=== PATIENT | female | born 1970 | race Caucasian/White ===

== ENCOUNTER 2019-03-06 22:07 | Emergency (ER) | payer OTHER ==
--- NOTE | 2019-03-06 22:34 | EDM.PDOC ---
ED HPI GENERAL MEDICAL PROBLEM - General Chief Complaint: Lower Extremity Injury/Pain Stated Complaint: BROKE TOE Time Seen by Provider: 03/06/19 22:25 Source of Information: Reports: Patient History Limitations: Reports: No Limitations - History of Present Illness INITIAL COMMENTS - FREE TEXT/NARRATIVE: Today, she hit door with her right foot, affecting her 4th and 5th toe; red, tender; hurts to bear weight No previous injury. Onset: Today Location: Reports: Lower Extremity, Right Quality: Reports: Throbbing Severity: Moderate Improves with: Reports: None Worsens with: Reports: None right 5th toe Pain Score (Numeric/FACES): 6 - Related Data Allergies Allergy/AdvReac Type Severity Reaction Status Date / Time amoxicillin Allergy Hives Verified 03/06/19 22:28 Home Meds: Home Meds Acyclovir 800 mg PO TID PRN MDD for 2 days 05/28/16 [History] Levonorgestrel-Ethin Estradiol [Enpresse-28 Tablet] 1 tab PO DAILY 05/28/16 [ History] Past Medical History Endocrine/Metabolic History: Reports: Obesity/BMI 30+ - Past Surgical History Musculoskeletal Surgical History: Reports: Other (See Below) Social & Family History - Caffeine Use Caffeine Use: Reports: Coffee Review of Systems - Review of Systems Review Of Systems: ROS reveals no pertinent complaints other than HPI. ED EXAM, GENERAL - Physical Exam Exam: See Below Exam Limited By: No Limitations General Appearance: Alert, WD/WN, No Apparent Distress Head: Atraumatic, Normocephalic Neck: Normal Inspection, Supple, Full Range of Motion Respiratory/Chest: No Respiratory Distress Cardiovascular: Regular Rate, Rhythm Extremities: Other (right foot, 4th and 5th digit, red, painful to move, +cms. No obvious deformity; swollen) Neurological: Alert, Oriented Psychiatric: Normal Affect, Normal Mood Course - Vital Signs Last Recorded V/S: Last Vital Signs Temp 97.1 F 03/06/19 22:33 Pulse 91 03/06/19 22:33 Resp 18 03/06/19 22:33 BP 182/101 H 03/06/19 22:33 Pulse Ox 99 03/06/19 22:33 - Re-Assessments/Exams Free Text/Narrative Re-Assessment/Exam: 03/07/19 13:15 xray reviewed with patient Free Text/Narrative Re-Assessment/Exam: 03/07/19 13:16 Attempted to reduce subluxation without success. She states she had the same issue 10 years ago with the same toe; questioning if this is a permanent fixture for her. Departure - Departure Time of Disposition: 23:08 Disposition: Home, Self-Care 01 Condition: Good Clinical Impression: Toe pain, right - Discharge Information *PRESCRIPTION DRUG MONITORING PROGRAM REVIEWED*: Not Applicable *COPY OF PRESCRIPTION DRUG MONITORING REPORT IN PATIENT [place]: Not Applicable Referrals: PCP,None [Primary Care Provider] - Forms: ED Department Discharge Additional Instructions: Ice to the affected area's Tylenol (1000 mg every 8 hours) for pain; may use ibuprofen (600 mg every 8 hours) as well Elevate when able; wear your boot as needed If pain is persistent despite giving it 7-10 days, recommend follow up with your doctor. - Problem List & Annotations (1) Toe pain, right SNOMED Code(s): 085252013 Code(s): M79.674 - PAIN IN RIGHT TOE(S) Status: Acute Priority: Low - Problem List Review Problem List Initiated/Reviewed/Updated: Yes
--- NOTE | 2019-03-06 23:15 | CRLCR ---
Pain swelling. Views of the right 2nd through 5th toes. Findings: Slight lateral subluxation of the right 5th middle phalanx. No acute fractures are seen. No acute osseous abnormalities. Dictated by Catherine Pittman MD @ Mar 06 2019 11:14PM Signed by Dr. Catherine Pittman @ Mar 06 2019 11:15PM
--- NOTE | 2019-03-06 23:35 | CRLCR ---
INDICATION: Pain and swelling 5th digit right hand TECHNIQUE: Three-views 5th digit right hand COMPARISON: None FINDINGS: Bones: Alignment is normal. No fractures or bone lesions. Joint spaces: Mild subluxation PIP joint 5th digit. Soft tissues: Unremarkable. IMPRESSION: Mild subluxation PIP joint 5th digit. Dictated by Yusef Arcos MD @ 03/06/2019 11:34:39 PM Dictated by: Yusef Arcos MD @ 03/06/2019 23:34:45 (Electronically Signed)
== END 2019-03-06 23:34 | disposition home or self-care (01) ==
LOC: JP.ED 22:07
DX: M79.674 Pain in right toe(s) (principal); E66.9 Obesity, unspecified; Z68.41 Body mass index [BMI] 40.0-44.9, adult; Z88.1 Allergy status to other antibiotic agents; Z79.899 Other long term (current) drug therapy; W22.8XXA Striking against or struck by other objects, initial encounter
CPT/HCPCS: 73660-T8; 73660-T9; 99283-25

== ENCOUNTER 2024-04-29 10:21 | Emergency (ER) | payer BC, OTHER ==
[2024-04-29 11:42] LABS: BASOPHILS PERCENT AUTO 0.4 % (0.1-1.3); EOSINOPHILS ABSOLUTE AUTO 0.07 K/uL (0.00-0.40); EOSINOPHILS PERCENT AUTO 1.5 % (0.0-5.4); HEMATOCRIT 37.2 % (34.3-46.0); HEMOGLOBIN 13.1 g/dL (11.2-15.5); IMMATURE GRAN PERCENT AUTO 0.2 % (0.0-0.7); LYMPHOCYTES ABSOLUTE AUTO 1.32 K/uL (0.8-3.3); LYMPHOCYTES PERCENT AUTO 28.8 % (11.4-47.7); MEAN CORPUSCULAR HEMOGLOBIN 29.6 pg (31.6-35.5); MEAN CORPUSCULAR HGB CONC 35.2 g/dL (31.6-35.5); MEAN CORPUSCULAR VOLUME 84.2 fL (81.4-99.0); MONOCYTES ABSOLUTE AUTO 0.37 K/uL (0.20-0.90); MONOCYTES PERCENT AUTO 8.1 % (3.3-12.6); NEUTROPHILS ABSOLUTE AUTO 2.79 K/uL (1.0-7.6); PLATELET COUNT,PLT 197 K/uL (130-375); RED BLOOD CELL COUNT 4.42 M/uL (3.77-5.24); WHITE BLOOD CELL COUNT,WBC 4.6 K/uL (3.2-11.0)
[2024-04-29] MEDS ORDERED: Lidocaine 1% 5 ML VIAL INJECT ONE (11:59)
[2024-04-29 12:06] LABS: CALCIUM 8.6 mg/dL (8.5-10.1); CREATININE 0.8 mg/dL (0.6-1.0); EST CRCL DRUG DOSING (CG) 79.08 mL/min; POTASSIUM,K 3.9 mmol/L (3.6-5.2); TROPONIN I HIGH SENSITIVITY 12.2 pg/mL (<=60.3)
[2024-04-29 12:13] LABS: BASOPHILS ABSOLUTE AUTO 0.02 K/uL (0.00-0.10); IMMATURE GRAN ABSOLUTE AUTO 0.01 K/uL (0.00-0.23)
[2024-04-29 12:14] LABS: ANION GAP 11.9 mmol/L (5.0-14.0)
== END 2024-04-29 12:57 | disposition home or self-care (01) ==
LOC: JP.ED 10:21
DX: S93.104A Unspecified dislocation of right toe(s), initial encounter (principal); S93.101A Unspecified subluxation of right toe(s), initial encounter; R06.02 Shortness of breath; E66.9 Obesity, unspecified; Z87.891 Personal history of nicotine dependence; Z88.1 Allergy status to other antibiotic agents; Z88.5 Allergy status to narcotic agent; W22.8XXA Striking against or struck by other objects, initial encounter
CPT/HCPCS: 28660; 36415; 71046; 71046-26; 73660-26-T9; 73660-T9; 80048; 84484; 85025; 93005; 93010; 99284; 99285-25